=== PATIENT | female | born 1980 | race Caucasian/White ===

== ENCOUNTER 2025-05-22 21:01 | Emergency (ER) | payer MEDICARE, MEDICAID, SELFPAY ==
--- OUTSIDE RECORDS SUMMARY | 2025-05-22 21:03 | XMS_ITS | Patient Health Record ---
Author Organization [facility] Address [address] [place] [address] Care Team Providers Care Manager Forms Name Role Phone Marevl Mcgovern Primary Care Provider Kiersten Kumar Unavailable [phone] Sandro Shah Unavailable [phone] Kia Hughes Unavailable [phone] Blanca Salcido Unavailable [phone] Allergies Allergen (clinical drug ingredient) Drug/Non Drug Allergy documented on EMR Reaction Allergy Type Onset Date Status Fish derivative (substance) FISH ALLERGIES (uncoded) SICK Allergy Active Iodine Unknown Drug Allergy Active Results Component Value Reference Range Notes 12 Panel Urine Drug Screen Reviewed date:11/09/2024 02:09:07 PM Interpretation: Performing Lab: Notes/Report: THC POS ASAEL NEG MOP (OPI) NEG AMP POS MET POS BAR NEG BZO POS MDMA NEG MTD NEG OXY NEG PCP NEG BUP POS 12 Panel Urine Drug Screen Reviewed date:11/22/2024 02:23:06 PM Interpretation: Performing Lab: Notes/Report: THC POS ASAEL NEG MOP (OPI) NEG AMP POS MET POS BAR NEG BZO NEG MDMA NEG MTD NEG OXY NEG PCP NEG BUP POS 12 Panel Urine Drug Screen Reviewed date:12/14/2024 10:40:24 AM Interpretation: Performing Lab: Notes/Report: THC POS ASAEL neg MOP (OPI) neg AMP POS MET POS BAR neg BZO neg MDMA POS MTD neg OXY neg PCP neg BUP POS 12 Panel Urine Drug Screen Reviewed date:01/08/2025 01:56:48 PM Interpretation: Performing Lab: Notes/Report: THC POS ASAEL neg MOP (OPI) neg AMP POS MET POS BAR neg BZO neg MDMA POS MTD neg OXY neg PCP neg BUP POS Buprenorphine and Metabolite (Urine test) Reviewed date:11/28/2024 11:55:50 AM Interpretation: Performing Lab:[facility], [address] [employer], [facility], Phone - [phone], Director - PhDud Notes/Report: Clinical Information:[id number] Buprenorphine Positive Confirmation p erformed by Mass Spectrometry Buprenorphine Positive Buprenorphine Conf, MS, UR 33 Cutoff=10 ng/m L Norbuprenorphine Positive Norbuprenorphine Conf, MS, UR 239 Cutoff=10 n g/mL 14 Panel Urine Drug Screen Reviewed date:04/10/2025 04:07:54 PM Interpretation: Performing Lab: Notes/Report: THC neg ASAEL neg MOP (OPI) neg AMP neg MET neg BAR neg BZO neg MDMA neg MTD neg OXY neg PCP neg BUP neg TCA neg FTY POS Reason For Referral No Information Medications Medication SIG (Take, Route, Frequency, Duration) Notes Start Date End Date Status Buprenorphine HCl-Naloxone HCl 8-2 MG 2.5 film under the tongue and allow to dissolve Sublingual 1 film in AM, 1.5 film in PM 04/10/2025 Active SEROquel 100 MG 1/2 tablet for 4 day s then 1 tablet Orally Once a day; Duration: 30 days 11/16/2024 Active Social History Tobacco Use: Social History Observation Description Date Details (start date - stop date) Current Smoker NA - NA Sex Assigned At : Social History Observation Description Sex Assigned At Female Tobacco Control (Standard) Question Answer Notes Tobacco use: Current smoker Problems Problem Type SNOMED Code ICD Code Onset Dates Problem Status W/U Status Risk Notes Problem Tobacco user (995548825) Nicotine dependence, unspecified, uncomplicated (F17.200) Active confirmed Problem Schizoaffective disorder, bipolar type (81092228) Schizoaffective disorder, bipolar type (F25.0) Active confirmed Problem Multiple sclerosis (82055679) Multiple sclerosis (G35) Active confirmed Problem Degeneration of lumbar intervertebral disc (82580061) Degenerative disc disease, lumbar (M51.36) Active confirmed Problem Opioid dependence (10241913) Opioid dependence (F11.20) Active confirmed Problem Methamphetamine abuse (344619613) Methamphetamine abuse (F15.10) Active confirmed Problem Obesity (495172568) Obesity (BMI 30-39.9) (E66.9) Active confirmed Problem Tobacco use (226408947) Tobacco use disorder (F17.200) Active confirmed Problem Opioid use disorder (0494701918) Opioid use disorder (F11.99) Active confirmed Vital Signs Heart Rate 104 /min 01/08/2025 Temperature 97.9 degrees Fahrenheit 12/14/2024 Respiratory Rate 16 /min 01/08/2025 Blood pressure diastolic 70 mm Hg 04/10/2025 Oximetry 97 % 01/08/2025 Height 63 in 01/08/2025 Blood pressure systolic 110 mm Hg 04/10/2025 Weight 193 lb 8 oz lbs 04/10/2025 BMI 34.8 kg/m2 01/08/2025 Encounters Encounter Location Date Provider Diagnosis [address] [place] [address] 11/09/2024 Sandro Shah Opioid use disorder F11.99 ; Obesity (BMI 30-39.9) E66.9 ; Nutritional counseling Z71.3 and Nicotine dependence, unspecified, uncomplicated F17.[address] [place] [address] 11/16/2024 Kia Hughes Schizoaffective disorder, bipolar type F25.0 ; Methamphetamine abuse F15.10 and Nicotine dependence, unspecified, uncomplicated F17.[address] [place] [address] 11/22/2024 Blanca Salcido Opioid use disorder F11.[address] [place] [address] 12/14/2024 Kiersten Kumar Opioid use disorder F11.99 ; Obesity (BMI 30-39.9) E66.9 and Tobacco use disorder F17.[address] [place] [address] 01/08/2025 Blanca Salcido Opioid use disorder F11.99 [address] [facility] [facility] [place] [place] [address] 04/10/2025 Kiersten Kumar Opioid use disorder F11.99 and Nicotine dependence, unspecified, uncomplicated F17.200 [address] [place] [address] 11/19/2024 Sandro Shah [address] [place] [address] 01/08/2025 Sandro Shah Assessments Encounter Date Diagnosis (ICD Code) Assessment Notes Treatment Notes Treatment Clinical Notes Section Notes 11/09/2024 Obesity (BMI 30-39.9) (ICD-10 - E66.9) 11/16/2024 Schizoaffective disorder, bipolar type (ICD-10 - F25.0) Seroquel started for psychosis and mood instability. A lot of delusional content during the evaluation. Continue treatment for Substance use. Labs ordered. At the end of the appointment she mentioned that she should not have spoken to anyone unless they were affiliated with the . Reminded that [facility] is not affiliated with the . She said, I know that, but feel you should have said it. May self-administer medications or be administered own oral medications per [facility] protocols. Provided informed consent with understanding of side effects, adverse effects, risks and benefits as well as alternative treatments as previously discussed and with the above recommended medications & other aspects of the treatment program. Agrees to return sooner if symptoms worsen or suicidal or homicidal ideations occur. 11/16/2024 Methamphetamine abuse (ICD-10 - F15.10) 11/22/2024 Opioid use disorder (ICD-10 - F11.99) 12/14/2024 Obesity (BMI 30-39.9) (ICD-10 - E66.9) 12/14/2024 Opioid use disorder (ICD-10 - F11.99) 01/08/2025 Opioid use disorder (ICD-10 - F11.99) 04/10/2025 Nicotine dependence, unspecified, uncomplicated (ICD-10 - F17.200) 04/10/2025 Opioid use disorder (ICD-10 - F11.99) 11/09/2024 Opioid use disorder (ICD-10 - F11.99) 12/14/2024 Tobacco use disorder (ICD-10 - F17.200) 11/09/2024 Nutritional counseling (ICD-10 - Z71.3) 11/09/2024 Nicotine dependence, unspecified, uncomplicated (ICD-10 - F17.200) 11/16/2024 Nicotine dependence, unspecified, uncomplicated (ICD-10 - F17.200) 11/09/2024 Other Potential side effects of buprenorphine discussed, as well as taking buprenorphine as prescribed. Dangers of using other controlled substances (prescribed or illegal/including benzodiazepines) with buprenorphine discussed. Patient understands taking other narcotics with buprenorphine could lead to respiratory distress and even . Patient understands that ALL treating providers/physicia ns should be informed of buprenorphine use as part of a Medication Assisted Treatment program 11/22/2024 Other Patient agrees to take medication as prescribed. Discussed medication side effects, adverse effects, risks, benefits, as well as interactions. Encouraged non-use of opioids and other illicit substances. Has naloxone. Discontinuing buprenorphine increases the risk of overdose upon return to illicit opioid use. Use of alcohol or benzodiazepines with buprenorphine increases the risk of overdose and . Education provided about safe storage of medications. Encouraged participation in recovery groups/counseling services. Contact office with questions or concerns. 12/14/2024 Other Discussed medication side effects, adverse effects, risks, benefits, as well as interactions. Encouraged non-use of opioids. Has naloxone. Recommended participation in recovery groups/counseling services. Agrees to contact office with questions or concerns. 01/08/2025 Other Discussed risks of methamphetamine including cardiovascular, mental health, and infection risks. Encouraged non-use. Encouraged CRU or other detox. Patient agrees to take medication as prescribed. Discussed medication side effects, adverse effects, risks, benefits, as well as interactions. Encouraged non-use of opioids and other illicit substances. Has naloxone. Discontinuing buprenorphine increases the risk of overdose upon return to illicit opioid use. Use of alcohol or benzodiazepines with buprenorphine increases the risk of overdose and . Education provided about safe storage of medications. Encouraged participation in recovery groups/counseling services. Contact office with questions or concerns. Patient may self-administe r their own medications or may self-administe r their own oral medications per [facility] Protocol. 04/10/2025 Other Patient agrees to take medication as prescribed. Discussed medication side effects, adverse effects, risks, benefits, as well as interactions. Encouraged non-use of opioids. Has naloxone. Recommended participation in recovery groups and/or counseling services. May contact office with questions or concerns. Patient may self-administe r their own medications or may self-administe r their own oral medications per [facility] Protocol. Plan Of Treatment Future Test Test Name Order Date Hemoglobin A1c* 11/16/2024 Vitamin B12* 11/16/2024 CBC With Differential/Platelet* 11/16/19 25 Vitamin D, 25-Hydroxy* 11/16/2024 TSH+Free T4* 11/16/2024 Lipid Panel* 11/16/2024 CMP 14 Comprehensive Metabolic Panel* Insurance Providers Payer Name Payer Address Payer Phone Subscriber Number Group Number Insured Name Patient Relationship to Insured Coverage Start Date Coverage End Date [employer] MEDICARE ADV [address] [address] [place] [address] [id number] Nya Miranda Self - patient is the insured 5 MEDICAID [address] [facility] [place] [address] [id number] Nya Miranda Self - patient is the insured 1 MEDICARE PART A [address] [place] [address] [id number] Nya Miranda Self - patient is the insured 5 5 Medical (General) History Medical History History ICD Code Multiple sclerosis G35 Opioid use disorder F11.99 Degenerative disc disease, lumbar M51.36 Surgical History Surgery Date(Month/Year) gallbladder removal 2019 Hospitalization History Reason Date(Month/Year) hospitalization 2022 gallbladder removal 2019
[2025-05-22 21:05] VITALS: BP 154/90; PULSE 102; RESP 18; TEMP 36.6; O2SAT 100
--- OUTSIDE RECORDS SUMMARY | 2025-05-23 00:48 | XMS_ITS | Patient Health Record ---
Author Organization [facility] Address [address] [place] [address] Care Team Providers Care Distillery Manager Name Role Phone Mcgovern Marvel Primary Care Provider Kiersten Kumar Unavailable [phone] Sandro Shah Unavailable [phone] Kia Hughes Unavailable [phone] Blanca Salcido Unavailable [phone] Allergies Allergen (clinical drug ingredient) Drug/Non Drug Allergy documented on EMR Reaction Allergy Type Onset Date Status Fish derivative (substance) FISH ALLERGIES (uncoded) SICK Allergy Active Iodine Unknown Drug Allergy Active Results Component Value Reference Range Notes Buprenorphine and Metabolite (Urine test) Reviewed date:11/28/2024 11:55:50 AM Interpretation: Performing Lab:[facility], [address] [facility], [facility], Phone - [phone], Director - PhDAbudu Notes/Report: Clinical Information:[id number] Buprenorphine Positive Confirmation p erformed by Mass Spectrometry Buprenorphine Positive Buprenorphine Conf, MS, UR 33 Cutoff=10 ng/m L Norbuprenorphine Positive Norbuprenorphine Conf, MS, UR 239 Cutoff=10 n g/mL 12 Panel Urine Drug Screen Reviewed date:11/22/2024 [...] neg OXY neg PCP neg BUP POS 14 Panel Urine Drug Screen Reviewed date:04/10/2025 04:07:54 PM Interpretation: Performing Lab: Notes/Report: THC neg ASAEL neg MOP (OPI) neg AMP neg MET neg BAR neg BZO neg MDMA neg MTD neg OXY neg PCP neg BUP neg TCA neg FTY POS 12 Panel Urine Drug Screen Reviewed date:11/09/2024 [...] neg OXY neg PCP neg BUP POS Reason For Referral No Information Medications [...] W/U Status Risk Notes Problem Tobacco user (470023679) Nicotine dependence, unspecified, uncomplicated (F17.200) Active confirmed Problem Schizoaffective disorder, bipolar type (73702847) Schizoaffective disorder, bipolar type (F25.0) Active confirmed Problem Multiple sclerosis (51562649) Multiple sclerosis (G35) Active confirmed Problem Degeneration of lumbar intervertebral disc (47112201) Degenerative disc disease, lumbar (M51.36) Active confirmed Problem Opioid dependence (27295594) Opioid dependence (F11.20) Active confirmed Problem Methamphetamine abuse (615298831) Methamphetamine abuse (F15.10) Active confirmed Problem Obesity (567329814) Obesity (BMI 30-39.9) (E66.9) Active confirmed Problem Tobacco use (131896695) Tobacco use disorder (F17.200) Active confirmed Problem Opioid use disorder (8585309742) Opioid use disorder (F11.99) Active confirmed Vital Signs Heart Rate 104 /min 01/08/2025 Temperature 97.9 degrees Fahrenheit 12/14/2024 Respiratory Rate 16 /min 01/08/2025 Blood pressure diastolic 70 mm Hg 04/10/2025 Oximetry 97 % 01/08/2025 Height 63 in 01/08/2025 Blood pressure systolic 110 mm Hg 04/10/2025 Weight 193 lb 8 oz lbs 04/10/2025 BMI 34.8 kg/m2 01/08/2025 Encounters Encounter Location Date Provider Diagnosis [address] [place] [address] 11/09/2024 Sandro Shah Opioid use disorder F11.99 ; Obesity (BMI 30-39.9) E66.9 ; Nutritional counseling Z71.3 and Nicotine dependence, unspecified, uncomplicated F17.[address] [place] [address] 11/16/2024 Kia Hughes Schizoaffective disorder, bipolar type F25.0 ; Methamphetamine abuse F15.10 and Nicotine dependence, unspecified, uncomplicated F17.[address] [place] [address] 11/22/2024 Blanca Salcido Opioid use disorder F11.[address] [place] [address] 12/14/2024 Kiersten Kumar Opioid use disorder F11.99 ; Obesity (BMI 30-39.9) E66.9 and Tobacco use disorder F17.[address] [place] [address] 01/08/2025 Blanca Salcido Opioid use disorder F11.99 [address] [facility] [address] 04/10/2025 Kiersten Kumar Opioid use disorder F11.99 and Nicotine dependence, unspecified, uncomplicated F17.200 [facility] [address] [place] [address] 11/19/2024 Sandro Shah [address] [place] [address] 01/08/2025 Sandro Shah Assessments Encounter Date Diagnosis (ICD Code) Assessment Notes Treatment Notes Treatment Clinical Notes Section Notes 01/08/2025 Opioid use disorder (ICD-10 - F11.99) 04/10/2025 Nicotine dependence, unspecified, uncomplicated (ICD-10 - F17.200) 04/10/2025 Opioid use disorder (ICD-10 - F11.99) 11/22/2024 Opioid use disorder (ICD-10 - F11.99) 12/14/2024 Obesity (BMI 30-39.9) (ICD-10 - E66.9) 12/14/2024 Opioid use disorder (ICD-10 - F11.99) 11/16/2024 Schizoaffective disorder, bipolar type (ICD-10 - F25.0) Seroquel started for psychosis and mood instability. A lot of delusional content during the evaluation. Continue treatment for Substance use. Labs ordered. At the end of the appointment she mentioned that she should not have spoken to anyone unless they were affiliated with the . Reminded that [facility] is not affiliated with the . She said, I know that, but feel you should have said it. May self-administer medications or be administered own oral medications per [facility] protocols. Provided informed consent with understanding of side effects, adverse effects, risks and benefits as well as alternative treatments as previously discussed and with the above recommended medications & other aspects of the treatment program. Agrees to return sooner if symptoms worsen or suicidal or homicidal ideations occur. 11/16/2024 Methamphetamine abuse (ICD-10 - F15.10) 11/09/2024 Obesity (BMI 30-39.9) (ICD-10 - E66.9) 11/09/2024 Opioid use disorder (ICD-10 - F11.99) 11/09/2024 Nutritional counseling (ICD-10 - Z71.3) 12/14/2024 Tobacco use disorder (ICD-10 - F17.200) 11/09/2024 Nicotine dependence, unspecified, uncomplicated (ICD-10 - [...] self-administe r their own oral medications per [facility] Protocol. 04/10/2025 Other Patient agrees to take medication as prescribed. Discussed medication side effects, adverse effects, risks, benefits, as well as interactions. Encouraged non-use of opioids. Has naloxone. Recommended participation in recovery groups and/or counseling services. May contact office with questions or concerns. Patient may self-administe r their own medications or may self-administe r their own oral medications per [facility] Protocol. Plan Of Treatment Future Test Test [...] End Date [employer] MEDICARE ADV [address] [address] [place] [address] [id number] Nya Miranda Self - patient is the insured 5 MEDICAID [address] [facility] [place] [address] [id number] Nya Miranda Self - patient is the insured 1 MEDICARE PART A [address] [place] [address] [id number] Nya Miranda Self - patient is the insured 5 5 Medical (General) History Medical History History ICD Code Multiple sclerosis G35 Opioid use disorder F11.99 Degenerative disc disease, lumbar M51.36 Surgical History Surgery Date(Month/Year) gallbladder removal 2019 Hospitalization History Reason Date(Month/Year) hospitalization 2022 gallbladder removal 2019
== END 2025-05-23 00:54 | disposition left against medical advice (07) ==
PROVIDERS: PCP Family Medicine
DX: L23.7 Allergic contact dermatitis due to plants, except food (principal)
CPT/HCPCS: 99199

== ENCOUNTER 2025-05-24 15:23 | Emergency (ER) | payer MEDICARE, MEDICAID, SELFPAY ==
[2025-05-24 15:25] VITALS: BP 135/76; PULSE 118; RESP 16; TEMP 36.4; O2SAT 99
--- OUTSIDE RECORDS SUMMARY | 2025-05-24 15:25 | XMS_ITS | Patient Health Record ---
Author Organization [facility] Address [address] [place] [address] Care Team Providers Care Manufacturing Management Associate Name Role Phone Marvel Mcgovern Primary Care Provider Kiersten Kumar Unavailable [phone] Sandro Shah Unavailable [phone] Kia Hughes Unavailable [phone] Blanca Salcido Unavailable [phone] Allergies Allergen (clinical drug ingredient) Drug/Non Drug Allergy documented on EMR Reaction Allergy Type Onset Date Status Fish derivative (substance) FISH ALLERGIES (uncoded) SICK Allergy Active Iodine Unknown Drug Allergy Active Results Component Value Reference Range Notes 12 Panel Urine Drug Screen Reviewed date:01/08/2025 [...] Interpretation: Performing Lab:[facility], [address] [facility], [facility], Phone - [phone], Director - PhDAbudu Notes/Report: Clinical Information:CCU:[id number] LM Buprenorphine Positive Confirmation p erformed by Mass Spectrometry Buprenorphine Positive Buprenorphine Conf, MS, UR 33 Cutoff=10 ng/m L Norbuprenorphine Positive Norbuprenorphine Conf, MS, UR 239 Cutoff=10 n g/mL Reason For Referral No Information Medications Medication [...] W/U Status Risk Notes Problem Tobacco user (669125413) Nicotine dependence, unspecified, uncomplicated (F17.200) Active confirmed Problem Schizoaffective disorder, bipolar type (65486197) Schizoaffective disorder, bipolar type (F25.0) Active confirmed Problem Multiple sclerosis (23459581) Multiple sclerosis (G35) Active confirmed Problem Degeneration of lumbar intervertebral disc (93550839) Degenerative disc disease, lumbar (M51.36) Active confirmed Problem Opioid dependence (21320773) Opioid dependence (F11.20) Active confirmed Problem Methamphetamine abuse (410825860) Methamphetamine abuse (F15.10) Active confirmed Problem Obesity (535918905) Obesity (BMI 30-39.9) (E66.9) Active confirmed Problem Tobacco use (092323972) Tobacco use disorder (F17.200) Active confirmed Problem Opioid use disorder (3439336801) Opioid use disorder (F11.99) Active confirmed Vital Signs Heart Rate 104 /min 01/08/2025 Temperature 97.9 degrees Fahrenheit 12/14/2024 Respiratory Rate 16 /min 01/08/2025 Blood pressure diastolic 70 mm Hg 04/10/2025 Oximetry 97 % 01/08/2025 Height 63 in 01/08/2025 Blood pressure systolic 110 mm Hg 04/10/2025 Weight 193 lb 8 oz lbs 04/10/2025 BMI 34.8 kg/m2 01/08/2025 Encounters Encounter Location Date Provider Diagnosis [address] [place] [address] 11/09/2024 Sandro Shah Opioid use disorder F11.99 ; Obesity (BMI 30-39.9) E66.9 ; Nutritional counseling Z71.3 and Nicotine dependence, unspecified, uncomplicated F17.[address] [place] [address] 11/16/2024 Kia Hughes Schizoaffective disorder, bipolar type F25.0 ; Methamphetamine abuse F15.10 and Nicotine dependence, unspecified, uncomplicated F17.[address] [place] [address] 11/22/2024 Blanca Salcido Opioid use disorder F11.[address] [place] [address] 12/14/2024 Kiersten Kumar Opioid use disorder F11.99 ; Obesity (BMI 30-39.9) E66.9 and Tobacco use disorder F17.[address] [place] [address] 01/08/2025 Blanca Salcido Opioid use disorder F11.99 [place] [address] [facility] [place] [address] 04/10/2025 Kiersten Kumar Opioid use disorder F11.99 and Nicotine dependence, unspecified, uncomplicated F17.200 [address] [place] [address] [place] [address] 11/19/2024 Sandro Shah [address] [place] [address] 01/08/2025 Sandro Shah Assessments Encounter Date Diagnosis (ICD Code) Assessment Notes Treatment Notes Treatment Clinical Notes Section Notes 11/22/2024 Opioid use disorder (ICD-10 - F11.99) 01/08/2025 Opioid use disorder (ICD-10 - F11.99) 04/10/2025 Nicotine dependence, unspecified, uncomplicated (ICD-10 - F17.200) 04/10/2025 Opioid use disorder (ICD-10 - F11.99) 12/14/2024 Obesity (BMI 30-39.9) (ICD-10 - E66.9) 12/14/2024 Opioid use disorder (ICD-10 - F11.99) 11/09/2024 Obesity (BMI 30-39.9) (ICD-10 - E66.9) 11/09/2024 Opioid use disorder (ICD-10 - F11.99) 11/16/2024 Schizoaffective disorder, bipolar type (ICD-10 - F25.0) Seroquel started for psychosis and mood instability. A lot of delusional content during the evaluation. Continue treatment for Substance use. Labs ordered. At the end of the appointment she mentioned that she should not have spoken to anyone unless they were affiliated with the . Reminded that [facility] is not affiliated with the . She said, I know that, but feel you should have said it. May self-administer medications or be administered own oral medications per [facility] protocols. Provided informed consent with understanding of side effects, adverse effects, risks and benefits as well as alternative treatments as previously discussed and with the above recommended medications & other aspects of the treatment program. Agrees to return sooner if symptoms worsen or suicidal or homicidal ideations occur. 11/16/2024 Methamphetamine abuse (ICD-10 - F15.10) 11/09/2024 Nutritional counseling (ICD-10 - Z71.3) 12/14/2024 [...] self-administe r their own oral medications per [facility] Protocol. 04/10/2025 Other Patient agrees to take medication as prescribed. Discussed medication side effects, adverse effects, risks, benefits, as well as interactions. Encouraged non-use of opioids. Has naloxone. Recommended participation in recovery groups and/or counseling services. May contact office with questions or concerns. Patient may self-administe r their own medications or may self-administe r their own oral medications per [facility] Protocol. Plan Of Treatment Future Test Test [...] End Date [employer] ADV [address] [address] [place] [address] [id number] Nya Miranda Self - patient is the insured 5 MEDICAID [address] [facility] [place] [address] [id number] Nya Miranda Self - patient is the insured 1 MEDICARE PART A [address] [place] [address] [id number] Nya Miranda Self - patient is the insured 5 5 Medical (General) History Medical History History ICD Code Multiple sclerosis G35 Opioid use disorder F11.99 Degenerative disc disease, lumbar M51.36 Surgical History Surgery Date(Month/Year) gallbladder removal 2019 Hospitalization History Reason Date(Month/Year) hospitalization 2022 gallbladder removal 2019
[2025-05-24 16:42] VITALS: BP 146/80; PULSE 86; RESP 18; TEMP 36.6; O2SAT 98
[2025-05-24 18:41] LABS: Hematocrit 43.1 % (37.0-47.0); Hemoglobin 14.0 g/dL (12.0-15.0); Immature Granulocyte Percent A 0.3 % (0-0.5); Lymphocytes Absolute Auto 2.40 K/mm3 (0.9-3.2); Mean Corpuscular HGB Conc 32.5 g/dl (32-36); Mean Corpuscular Hemoglobin 28.7 pg (26-34); Mean Corpuscular Volume 88.5 fl (80-100); Nucleated Red Blood Cells Absolute Auto 0.000 K/mm3 (0.0-0.012); Nucleated Red Blood Cells Perc 0.0 % (0.0-0.2); Platelet Count Result 452 k/mm3 (150-375); Red Blood Count 4.87 M/mm3 (4.2-5.4); White Blood Count 7.9 K/mm3 (4.5-10.0)
[2025-05-24 18:53] LABS: Alanine Aminotransferase 35 U/L (6-35); Albumin Level 3.8 g/dL (3.5-5.1); Alkaline Phosphatase 129 U/L (38-126); Anion Gap 6 mmol/L (4-12); Aspartate Amino Transferase 45 U/L (14-36); Bilirubin,Total 0.5 mg/dL (0.2-1.3); Blood Urea Nitrogen 9 mg/dL (7-17); Calcium 8.9 mg/dL (8.4-10.2); Carbon Dioxide 28 mmol/L (22-30); Chloride 101 mmol/L (98-107); Estimated CRCL calculation 98 ml/min; Estimated Glomerular Filt Rate > 60; Glucose 103 mg/dL (65-110); Potassium 4.7 mmol/L (3.4-5.0); Sodium 135 mmol/L (137-145); Total Protein 8.3 g/dL (6.3-8.2)
--- NOTE | 2025-05-24 18:58 | ED_ITS ---
HPI - Skin/Abscess/Foreign Bdy General Chief complaint: Skin/Abscess/Foreign Body Stated complaint: poison sumac all over me Time Seen by Provider: 05/24/25 17:29 History of Present Illness HPI narrative: Patient is a 44-year-old female who presents to the ER with concerns for poison sumac exposure. She reports she believes she was exposed behind her house when she was outside. Patient endorses open wounds all over her body, with the most significant ones on her midsternal chest, left earlobe, and left ring finger. She reports she gets these sores frequently and they usually clear up quickly with some cream.Patient endorses full body itching, intermittent fevers, intermittent trouble breathing, and thick/foggy urine. She also endorses frequent increased anxiety and ?nervousness. Patient denies any medical history and reports she does not take daily medications. She denies any chest pain, visual changes, headache, acute back pain, neck stiffness, or mastoid tenderness. Patient reports she has never used IV drugs and not currently an illicit drug user. Related Data Allergies Allergy/AdvReac Type Severity Reaction Status Date / Time No Known Allergies Allergy Verified 05/22/25 21:02 Review of Systems 2 Review of Systems: All systems reviewed & are unremarkable except as noted in HPI and below PMFSH Past Medical History Medical History Patient denies medical problems Social History Social History Smoking packs per day: 0.5 Smoking cigarettes per day: 10.0 Smoking status: Current every day smoker Tobacco type: cigarettes Exam 2 Narrative: GENERAL: Well appearing, well-nourished, non-toxic, in no acute distress. HEAD: Normocephalic, atraumatic. + open, crusty sores around pt's upper and lower lips NECK: Supple. No adenopathy, no masses. RESPIRATORY: Airway patent, respirations nonlabored. Clear to auscultation bilaterally, no rales, rhonchi, wheezing. CARDIOVASCULAR: Regular rate and rhythm without murmurs, rubs, or gallops. Peripheral pulses 2+ and equal bilaterally. ABDOMINAL: Soft, nontender, nondistended, no hepatosplenomegaly. Normoactive BS. MUSCULOSKELETAL: Moves all extremities. Strength/ROM intact without gross deformities. SKIN: Warm, dry, normal color. No rashes. Multiple open wounds with the largest being on her left earlobe, mid sternal, and left ring finger. No purulent drainage noted. Multiple smaller open wounds on pt's arms and legs. + redness, warmth and swelling around L earlobe, chest wound is scabbed over but does not indicate signs/symptoms of infection, pt's L ring finger wound is slightly reddened but no drainage from site. NEURO: A&O X3. Speech clear. Cranial nerves II-XII intact. No ataxic movements. Course Vital Signs Vital signs: Vital Signs Temperature 36.4 C 05/24/25 15:25 Pulse Rate 118 H 05/24/25 15:25 Respiratory Rate 16 05/24/25 15:25 Blood Pressure 135/76 05/24/25 15:25 Pulse Oximetry 99 05/24/25 15:25 Oxygen Delivery Room Air 05/24/25 15:25 Temperature 36.6 C 05/24/25 16:42 Pulse Rate 86 05/24/25 16:42 Respiratory Rate 18 05/24/25 16:42 Blood Pressure 146/80 H 05/24/25 16:42 Pulse Oximetry 98 05/24/25 16:42 Oxygen Delivery Room Air 05/24/25 16:42 MDM - Skin/Abscess/Foreign Bdy MDM Narrative Medical decision making narrative: Patient is a 44-year-old female who presents to the ER with concerns for poison sumac exposure. She reports she believes she was exposed behind her house when she was outside. Patient endorses open wounds all over her body, with the most significant ones on her mouth, midsternal chest, left earlobe, and left ring finger. She reports she gets these sores frequently and they usually clear up quickly with some cream.Patient endorses full body itching, intermittent fevers, intermittent trouble breathing, and thick/foggy urine. She also endorses frequent increased anxiety and ?nervousness. Patient denies any medical history and reports she does not take daily medications. She denies any chest pain, visual changes, headache, acute back pain, neck stiffness, or mastoid tenderness. Patient reports she has never used IV drugs and not currently an illicit drug user. Upon further discussion between nurse and patient, patient endorses methamphetamine use and states it is the only thing that helps with my itching. Labs Ordered: CBC, CMP, UDS, UA Imaging Ordered: None necessary Medications Ordered: Tdap, clindamycin, Bactrim Results: Patient's CBC indicates a platelet count of 452 but otherwise indicates no acute abnormalities. Her CMP indicates a sodium of 135, AST of 45, alk-phos of 129, and total protein of 8.3. Patient's urinalysis indicates patient has urinary tract infection. Her UDS is positive for amphetamines and cannabinoids. Diagnosis: Illicit drug-induced skin infection Patient Education/Shared MDM: Results of lab work shared with patient. Patient strongly advised to follow-up with her PCP as soon as possible. She should complete her full dose of antibiotics. Patient will be given her 1st dose of her Bactrim and clindamycin here in the ER. She will be discharged home with a prescription for both antibiotics. Patient will also receive a Tdap vaccine here in the ER, as she does not know when the last time was she received tetanus shot. Patient strongly advised to refrain from further methamphetamine use. S trict return precautions provided. Patient verbalized understanding and is in agreement with plan. Vital signs stable at time of discharge. All questions answered. Differential Diagnosis Differential diagnosis: Likely abscess of skin or subcutaneous tissue, urticaria, cellulitis, impetigo and contact dermatitis Lab Data Attestation: I reviewed the patient's lab results. 05/24/25 18:32 05/24/25 18:32 Labs: Lab Results 05/24/25 05/24/25 Range/Units 18:26 18:32 WBC 7.9 (4.5-10.0) K/mm3 RBC 4.87 (4.2-5.4) M/mm3 Hgb 14.0 (12.0-15.0) g/dL Hct 43.1 (37.0-47.0) % MCV 88.5 (80-100) fl MCH 28.7 (26-34) pg MCHC 32.5 (32-36) g/dl RDW 13.5 (11.5-14.5) % Plt Count 452 H (150-375) k/mm3 MPV 9.2 (7.4-10.4) fl Immature Gran % (Auto) 0.3 (0-0.5) % Neut % (Auto) 56.7 (45.5-73.1) % Lymph % (Auto) 30.5 (18.3-44.2) % [place] % (Auto) 9.5 H (2.6-8.5) % Eos % (Auto) 2.2 (0-4.4) % Baso % (Auto) 0.8 (0.2-1.2) % Lymph # (Auto) 2.40 (0.9-3.2) K/mm3 [place] # (Auto) 0.8 H (0.1-0.6) K/mm3 Eos # (Auto) 0.2 (0-0.3) K/mm3 Baso # (Auto) 0.1 (0.0-0.1) K/mm3 Abs Immat Gran (auto) 0.02 (0.00-0.031) K/mm3 Absolute Neuts (auto) 4.5 (1.3-6.7) K/mm3 Absolute Nucleated RBC 0.000 (0.0-0.012) K/mm3 Nucleated RBC % 0.0 (0.0-0.2) % Sodium 135 L (137-145) mmol/L Potassium 4.7 (3.4-5.0) mmol/L Chloride 101 (98-107) mmol/L Carbon Dioxide 28 (22-30) mmol/L Anion Gap 6 (4-12) mmol/L BUN 9 (7-17) mg/dL Creatinine 0.70 (0.7-1.0) mg/dL Estim Creat Clear Calc 98 ml/min Estimated GFR > 60 (59 - ) Glucose 103 (65-110) mg/dL Calcium 8.9 (8.4-10.2) mg/dL Total Bilirubin 0.5 (0.2-1.3) mg/dL AST 45 H (14-36) U/L ALT 35 (6-35) U/L Alkaline Phosphatase 129 H (38-126) U/L Total Protein 8.3 H (6.3-8.2) g/dL Albumin 3.8 (3.5-5.1) g/dL Urine Color Yellow (Yellow) Urine Appearance Cloudy H (Clear) Urine pH 6.0 (5.0-9.0) Ur Specific [place] 1.019 (1.001-1.035) Urine Protein Trace (Negative) mg/dL Urine Glucose (UA) Negative (Negative) mg/dL Urine Ketones Trace H (Negative) mg/dL Ur Blood (Man) Negative (Negative) Urine Nitrate Negative (Negative) Urine Bilirubin Negative (Negative) Urine Urobilinogen 1.0 (<2.0) mg/dL Leukocyte Esterase Rfl 3+ H (Negative) LAUREL/UL Urine RBC 0-2 (0-2) /hpf Urine WBC >100 H (0-3) /hpf Ur Squamous Epith Cells Few (Few) /hpf Urine Bacteria 2+ H /hpf Urine Casts 0-2 Urine Opiates Screen Negative (Negative) Urine Methadone Screen Negative (Negative) Ur Barbiturates Screen Negative (Negative) Ur Phencyclidine Scrn Negative (Negative) Ur Amphetamine Screen Positive A (Negative) U Benzodiazepines Scrn Negative (Negative) Urine Cocaine Screen Negative (Negative) U Cannabinoids Screen Positive A (Negative) Discharge Plan Discharge Clinical Impression: Cellulitis, Impetigo, Urticaria Patient Disposition: Home Condition: Guarded Prognosis Instructions: Antibiotic Form Patient Language: Malagasy Prescriptions: No Action amoxicillin-pot clavulanate 875-125 mg tablet 1 tablet PO Q12H 7 Days Qty: 14 0RF mupirocin 2 % ointment 1 applic topical BID 14 Days Qty: 22 0RF Follow-up/Referrals: Leobardo,Sudheer Lui MD [Primary Care Provider] -
[2025-05-24 19:11] LABS: Add Urine Microscopic? YES; Appearance Urine Cloudy (Clear); Glucose Urine UA Negative (Negative); Leukocyte Esterase Ur 3+ LEU/UL (Negative); Nitrate Urine Negative (Negative); Non Pathogenic Casts 0-2; Specific Grav Ur 1.019 (1.001-1.035)
[2025-05-24 20:35] LABS: Cannabinoid Screen Urine Positive (Negative)
[2025-05-24] MEDS: TETANUS,DIPHTHERIA,AC PERTUSSIS ADULT (0.5 ML) BOOSTRIX IM (21:11)
[2025-05-24] MEDS: CLINDAMYCIN HCL 150 MG CAP 300 MG PO (21:16)
[2025-05-24] MEDS: SULFAMETHOXAZOLE/TRIMETHOPRIM 800/160 MG DS TABLET 1 TAB PO (21:16)
== END 2025-05-24 21:24 | disposition home or self-care (01) ==
PROVIDERS: Emergency Provider Registered Nurse; PCP Family Medicine
DX: L01.00 Impetigo, unspecified (principal); L50.9 Urticaria, unspecified; L03.90 Cellulitis, unspecified; Z23 Encounter for immunization; F17.210 Nicotine dependence, cigarettes, uncomplicated; F15.90 Other stimulant use, unspecified, uncomplicated
CPT/HCPCS: 36415; 80053; 80307; 81001; 85025; 90471; 90715; 99283; A9270

== ENCOUNTER 2025-08-11 20:01 | Emergency (ER) | payer MEDICARE, MEDICAID, SELFPAY ==
[2025-08-11 20:08] VITALS: BP 157/101; PULSE 121; RESP 22; TEMP 36.8; O2SAT 94
--- NOTE | 2025-08-11 22:29 | ED_ITS ---
HPI - Ear Problem General Chief complaint: Ear Stated complaint: L ear staph infection Time Seen by Provider: 08/11/25 21:49 Source: patient Mode of arrival: ambulatory Limitations: no limitations History of Present Illness HPI Narrative: Patient is a 45-year-old female who presents the ED with report of left ear infection. Patient reports concern over infection to left ear lobe, left facial cheek. Reports this has been present for several weeks. She states she had to dig out bugs/termites from her left ear. Has history of staph infection. Has previously been seen for this and admitted to methamphetamine use. Has not used anything for symptoms. Related Data Allergies Allergy/AdvReac Type Severity Reaction Status Date / Time No Known Allergies Allergy Verified 05/22/25 21:02 Review of Systems Review of Systems: All systems reviewed & are unremarkable except as noted in HPI. All systems reviewed & are unremarkable except as noted in HPI and below PMFSH Past Medical History Medical History Patient denies medical problems Social History Social History Smoking packs per day: 0.5 Smoking cigarettes per day: 10.0 Smoking status: Current every day smoker Tobacco type: cigarettes Exam Narrative: GENERAL: Mildly disheveled, obese with BMI of 32.8, non-toxic, in no acute distress. HEAD: Normocephalic, atraumatic. ENT: L TM clear, no FB present in L EAC. L EAC is mildly erythematous and inflamed. L inferior pinna with diffuse erythema/crusting. Erythema extending to L lateral facial cheek /along mandible. Some yellow crusting present. No focal fluctuance. No stridor or trismus. Maintaining secretions. RESPIRATORY: Airway patent, respirations nonlabored. CARDIOVASCULAR: Regular rate and rhythm MUSCULOSKELETAL: Moves all extremities. No gross deformities. SKIN: Warm, dry, normal color. NEURO: A&O X3. Speech clear. PSYCHIATRIC: Rapid pressured speech at times. Normal interaction. Course Vital Signs Vital signs: Vital Signs Temperature 98.3 F 08/11/25 20:08 Pulse Rate 121 H 08/11/25 20:08 Respiratory Rate 22 H 08/11/25 20:08 Blood Pressure 157/101 H 08/11/25 20:08 Pulse Oximetry 94 08/11/25 20:08 Oxygen Delivery Room Air 08/11/25 20:08 Temperature 98.3 F 08/11/25 20:08 Pulse Rate 107 H 08/11/25 22:46 Respiratory Rate 18 08/11/25 22:46 Blood Pressure 111/77 08/11/25 22:46 Pulse Oximetry 94 08/11/25 22:46 Oxygen Delivery Room Air 08/11/25 20:08 Medical Decision Making MDM Narrative Medical decision making narrative: Exam consistent with cellulitis of left ear lobe/left facial cheek, possible impetigo, as well as concern for L otitis externa. Will treat for such with Bactrim given history of staph infection, mupirocin ointment, ofloxacin ear drops. Patient advised to follow-up with PCP. Given return precautions. Discharged in stable condition. Medical Records Medical records reviewed: Yes I reviewed the external patient's medical records. Vital Signs Vital Signs: Vital Signs Temperature 98.3 F 08/11/25 20:08 Pulse Rate 121 H 08/11/25 20:08 Respiratory Rate 22 H 08/11/25 20:08 Blood Pressure 157/101 H 08/11/25 20:08 Pulse Oximetry 94 08/11/25 20:08 Oxygen Delivery Room Air 08/11/25 20:08 Temperature 98.3 F 08/11/25 20:08 Pulse Rate 107 H 08/11/25 22:46 Respiratory Rate 18 08/11/25 22:46 Blood Pressure 111/77 08/11/25 22:46 Pulse Oximetry 94 08/11/25 22:46 Oxygen Delivery Room Air 08/11/25 20:08 Discharge Plan Discharge Clinical Impression: Cellulitis of external ear, Otitis externa Patient Disposition: Home Condition: Stable Instructions: Antibiotic Form, Impetigo (ED), Cellulitis (ED), Ear Infection (ED) Additional Instructions: Take oral antibiotics as prescribed. Utilize antibiotic ear drops as prescribed. Also recommend applying mupirocin ointment to left-sided ear/face. Avoid touching or picking skin around left ear. Keep skin clean. Follow-up with your primary care doctor for further evaluation. Return for new or worse topher concerns. Patient Language: Ivorian Prescriptions: New mupirocin [Centany] 2 % ointment 1 applic topical TID Qty: 15 0RF sulfamethoxazole-trimethoprim [Bactrim DS] 800-160 mg tablet 1 tablet PO Q12H 7 Days Qty: 14 0RF ofloxacin 0.3 % drops 10 drp LEFT EAR DAILY 7 Days Qty: 5 0RF No Action amoxicillin-pot clavulanate 875-125 mg tablet 1 tablet PO Q12H 7 Days Qty: 14 0RF mupirocin 2 % ointment 1 applic topical BID 14 Days Qty: 22 0RF clindamycin HCl [Cleocin HCl] 300 mg capsule 450 mg PO TID Qty: 30 0RF sulfamethoxazole-trimethoprim [Bactrim DS] 800-160 mg tablet 2 tablet PO Q12H 10 Days Qty: 40 0RF mupirocin [Centany] 2 % ointment 1 applic topical TID Qty: 22 0RF Follow-up/Referrals: Leobardo,Sudheer Lui MD [Primary Care Provider, Unknown] Time of Disposition: 22:36
[2025-08-11 22:46] VITALS: BP 111/77; PULSE 107; RESP 18; O2SAT 94
== END 2025-08-11 22:46 | disposition home or self-care (01) ==
PROVIDERS: Emergency Provider Physician Assistant; PCP Family Medicine
DX: H60.12 Cellulitis of left external ear (principal); H60.92 Unspecified otitis externa, left ear; F17.210 Nicotine dependence, cigarettes, uncomplicated
CPT/HCPCS: 99283